=== PATIENT | female | born 1940 | race Caucasian/White ===

== ENCOUNTER 2022-01-23 15:41 | Observation (INO) ==
[2022-01-23 17:18] LABS: Basophils % 0.7 % (0.0-0.8); Eosinophils # 0.1 10*3/uL (0.0-0.87); Eosinophils % 1.5 % (0.00-10.9); Hematocrit 41.9 VOL% (35.7-47.0); Hemoglobin 13.6 GM/DL (12.0-16.0); Immature Granulocytes % 0.7 %; Immature Granulocytes Absolute 0.04 #; Lymphocytes # 1.2 10*3/uL (1.4-4.0); Lymphocytes % 20.8 % (21.3-54.2); Mean Corpuscular HGB Conc 32.5 GM/DL (32-36); Mean Corpuscular Volume 88.6 FL (87-102); Mean Platelet Volume 11.6 FL (9.6-12.0); Monocytes # 0.4 10*3/uL (0.11-0.8); Monocytes % 6.2 % (1.7-12.7); Neutrophils % 70.1 % (38.7-73.9); Platelet Count 172 T/CUMM (130-400); Red Blood Count 4.73 MC/CUMM (3.8-5.5); Red Cell Distribution Width 14.1 % (9.3-17.3); White Blood Count 5.8 T/CUMM (4-12)
[2022-01-23 17:31] LABS: Albumin 4.4 G/DL (3.4-5.0); Bilirubin,Total 0.7 MG/DL (0.20-1.00); Calcium 9.6 MG/DL (8.5-10.1); Osmolality,Calculated 287.7 MOS/KG (273-304); Potassium 4.3 MMOL/L (3.5-5.1); Total Protein 7.2 G/DL (6.4-8.2)
[2022-01-23] MEDS ORDERED: ONDANSETRON 4 MG/2 ML VIAL IV PRN (18:32)
[2022-01-23] MEDS ORDERED: GLUCAGON 1 MG VIAL IM PRN (18:32)
[2022-01-23] MEDS ORDERED: DEXTROSE 10% 250 ML BAG IV PRN (18:42)
[2022-01-23] MEDS ORDERED: hydrALAZINE 25 MG TABLET PO PRN (19:25)
[2022-01-23] MEDS ORDERED: LACTATED RINGERS 1,000 ML IV SCH (20:00)
[2022-01-23] MEDS: LEVOTHYROXINE 25 MCG TABLET PO SCH (20:24)
[2022-01-23] MEDS: HEPARIN 5,000 UNIT/1 ML VIAL SUBCUT SCH (20:24)
[2022-01-23] MEDS: ACETAMINOPHEN 325 MG TABLET PO PRN (21:59)
[2022-01-24 05:08] LABS: Basophils % 0.7 % (0.0-0.8); Eosinophils # 0.1 10*3/uL (0.0-0.87); Eosinophils % 2.4 % (0.00-10.9); Hematocrit 35.1 VOL% (35.7-47.0); Hemoglobin 11.3 GM/DL (12.0-16.0); Immature Granulocytes % 0.2 %; Immature Granulocytes Absolute 0.01 #; Lymphocytes # 1.4 10*3/uL (1.4-4.0); Lymphocytes % 33.2 % (21.3-54.2); Mean Corpuscular HGB Conc 32.2 GM/DL (32-36); Mean Corpuscular Volume 89.8 FL (87-102); Mean Platelet Volume 11.2 FL (9.6-12.0); Monocytes # 0.4 10*3/uL (0.11-0.8); Monocytes % 8.5 % (1.7-12.7); Platelet Count 145 T/CUMM (130-400); Red Blood Count 3.91 MC/CUMM (3.8-5.5); Red Cell Distribution Width 14.2 % (9.3-17.3); White Blood Count 4.2 T/CUMM (4-12)
[2022-01-24 05:58] LABS: Calcium 8.6 MG/DL (8.5-10.1); Osmolality,Calculated 287.3 MOS/KG (273-304); Potassium 4.2 MMOL/L (3.5-5.1); Risk Ratio 3.73; Thyroid Stimulating Hormone 2.4 uIU/ml (0.358-3.74); VLDL Cholesterol 24.8 MG/DL
[2022-01-24] MEDS: HEPARIN 5,000 UNIT/1 ML VIAL SUBCUT SCH ×2 (06:01→20:57)
[2022-01-24] MEDS ORDERED: MAGNESIUM SULF RIDER 2 GM/50 ML PREMIX IV ONE (07:39)
[2022-01-24] MEDS: INSULIN LISPRO 100 UNIT/ML SUBCUT SCH ×2 (08:00→17:10)
[2022-01-24] MEDS: PANTOPRAZOLE 40 MG TABLET PO SCH (08:49)
[2022-01-24] MEDS: ACETAMINOPHEN 325 MG TABLET PO PRN (12:49)
[2022-01-24] MEDS ORDERED: ASPIRIN EC 81 MG TABLET PO SCH (19:00)
[2022-01-24] MEDS: ASCORBIC ACID 500 MG TABLET PO SCH (20:57)
[2022-01-24] MEDS: LEVOTHYROXINE 25 MCG TABLET PO SCH (20:57)
[2022-01-24] MEDS ORDERED: ATORVASTATIN 40 MG TABLET PO SCH (21:00)
[2022-01-25 04:34] LABS: Basophils % 0.7 % (0.0-0.8); Eosinophils # 0.2 10*3/uL (0.0-0.87); Eosinophils % 2.8 % (0.00-10.9); Hematocrit 39.4 VOL% (35.7-47.0); Hemoglobin 12.4 GM/DL (12.0-16.0); Immature Granulocytes % 0.5 %; Immature Granulocytes Absolute 0.03 #; Lymphocytes # 1.7 10*3/uL (1.4-4.0); Lymphocytes % 29.8 % (21.3-54.2); Mean Corpuscular HGB Conc 31.5 GM/DL (32-36); Mean Corpuscular Volume 91.4 FL (87-102); Mean Platelet Volume 10.5 FL (9.6-12.0); Monocytes # 0.5 10*3/uL (0.11-0.8); Monocytes % 7.9 % (1.7-12.7); Neutrophils % 58.3 % (38.7-73.9); Platelet Count 169 T/CUMM (130-400); Red Blood Count 4.31 MC/CUMM (3.8-5.5); Red Cell Distribution Width 14.2 % (9.3-17.3); White Blood Count 5.7 T/CUMM (4-12)
[2022-01-25 05:01] LABS: Calcium 9.6 MG/DL (8.5-10.1); Osmolality,Calculated 281.4 MOS/KG (273-304); Potassium 4.5 MMOL/L (3.5-5.1)
[2022-01-25] MEDS: INSULIN LISPRO 100 UNIT/ML SUBCUT SCH (08:25)
[2022-01-25] MEDS: PANTOPRAZOLE 40 MG TABLET PO SCH (09:53)
[2022-01-25] MEDS: ASCORBIC ACID 500 MG TABLET PO SCH (09:54)
[2022-01-25 12:27] VITALS: BP 148/69
== END 2022-01-25 15:14 | disposition home health service (06) ==
LOC: N.ED 15:41 → N.EDINP 15:41 → N.TELES 21:08
PROVIDERS: ADMIT Internal Medicine; ATTEND Internal Medicine

== ENCOUNTER 2022-05-30 07:31 | Observation (INO) ==
[2022-05-30] MEDS ORDERED: ASPIRIN 325 MG TABLET PO STA (08:07)
[2022-05-30] MEDS ORDERED: NITROGLYCERIN 2% OINT 1 INCH/GM PACK TOP STA (08:07)
[2022-05-30 08:14] LABS: Basophils % 0.7 % (0.0-0.8); Eosinophils # 0.1 10*3/uL (0.0-0.87); Eosinophils % 1.3 % (0.00-10.9); Hematocrit 36.8 VOL% (35.7-47.0); Hemoglobin 11.6 GM/DL (12.0-16.0); Immature Granulocytes % 0.7 %; Immature Granulocytes Absolute 0.04 #; Lymphocytes % 18.8 % (21.3-54.2); Mean Corpuscular HGB Conc 31.5 GM/DL (32-36); Mean Corpuscular Volume 92.5 FL (87-102); Mean Platelet Volume 11.4 FL (9.6-12.0); Monocytes # 0.3 10*3/uL (0.11-0.8); Monocytes % 5.7 % (1.7-12.7); Neutrophils % 72.8 % (38.7-73.9); Platelet Count 153 T/CUMM (130-400); Red Blood Count 3.98 MC/CUMM (3.8-5.5); Red Cell Distribution Width 13.4 % (9.3-17.3); White Blood Count 5.5 T/CUMM (4-12)
[2022-05-30] MEDS ORDERED: ONDANSETRON 4 MG/2 ML VIAL IV STA (08:18)
[2022-05-30] MEDS ORDERED: MORPHINE 10 MG/1 ML VIAL IV STA (08:18)
[2022-05-30 08:26] LABS: Albumin 3.5 G/DL (3.4-5.0); Bilirubin,Total 0.4 MG/DL (0.20-1.00); Calcium 8.8 MG/DL (8.5-10.1); Osmolality,Calculated 289.3 MOS/KG (273-304); Potassium 3.9 MMOL/L (3.5-5.1); Total Protein 5.5 G/DL (6.4-8.2)
[2022-05-30] MEDS ORDERED: MORPHINE 2 MG/1 ML SYRINGE ONE (08:28)
[2022-05-30] MEDS ORDERED: ENOXAPARIN 80 MG/0.8 ML SYRINGE SUBCUT STA (08:51)
[2022-05-30] MEDS ORDERED: ALUMINUM/MAGNES/SIMETH MAX STR 30 ML UDCUP PO PRN (08:57)
[2022-05-30] MEDS ORDERED: POTASSIUM CHLORIDE 20 MEQ TABLET PO PRN (08:57)
[2022-05-30] MEDS ORDERED: ONDANSETRON 4 MG/2 ML VIAL IV PRN (08:57)
[2022-05-30] MEDS ORDERED: hydrALAZINE 20 MG/1 ML VIAL IV PRN (08:57)
[2022-05-30] MEDS ORDERED: MAGNESIUM SULF RIDER 4 GM/100 ML PREMIX IV PRN (08:57)
[2022-05-30] MEDS ORDERED: ACETAMINOPHEN 325 MG TABLET PO PRN (08:57)
[2022-05-30] MEDS ORDERED: guaiFENesin/DM ER 600-30 MG TABLET PO PRN (08:57)
[2022-05-30] MEDS ORDERED: PROMETHAZINE 25 MG TABLET PO PRN (08:57)
[2022-05-30] MEDS ORDERED: DOCUSATE SODIUM 100 MG CAPSULE PO PRN (08:57)
[2022-05-30] MEDS ORDERED: MORPHINE 2 MG/1 ML SYRINGE IV PRN (08:57)
[2022-05-30] MEDS ORDERED: ZALEPLON 5 MG CAPSULE PO PRN (08:57)
[2022-05-30] MEDS ORDERED: diphenhydrAMINE CAP 25 MG CAPSULE PO PRN (08:57)
[2022-05-30] MEDS ORDERED: MAGNESIUM SULF RIDER 2 GM/50 ML PREMIX IV PRN (08:57)
[2022-05-30] MEDS: SODIUM CHLORIDE 0.9% 1,000 ML IV SCH ×3 (09:23→18:27)
[2022-05-30] MEDS ORDERED: NITROGLYCERIN SL 0.4 MG TABLET SL PRN (09:29)
[2022-05-30] MEDS ORDERED: POTASSIUM CHLORIDE RIDER 10 MEQ/100 ML PREMIX IV PRN (09:30)
[2022-05-30] MEDS ORDERED: DIAZEPAM 5 MG TABLET PO ONE (09:30)
[2022-05-30] MEDS ORDERED: diphenhydrAMINE CAP 25 MG CAPSULE PO ONE (09:30)
[2022-05-30] MEDS ORDERED: HEPARIN/NACL 0.9% 2 UNITS/ML 2,000 UNIT/1,000 ML BAG IV ONE (15:36)
[2022-05-30] MEDS ORDERED: fentaNYL 100 MCG/2 ML VIAL ONE (15:53)
[2022-05-30] MEDS ORDERED: MIDAZOLAM 2 MG/2 ML VIAL ONE (15:53)
[2022-05-30] MEDS ORDERED: DIAZEPAM 5 MG TABLET ONE (15:54)
[2022-05-30] MEDS ORDERED: diphenhydrAMINE CAP 25 MG CAPSULE ONE (15:54)
[2022-05-30] MEDS ORDERED: NITROGLYCERIN DRIP 50 MG/250 ML BOTTLE IV ONE (16:05)
[2022-05-30] MEDS ORDERED: VERAPAMIL 5 MG/2 ML VIAL ONE (16:05)
[2022-05-30] MEDS ORDERED: ENOXAPARIN 60 MG/0.6 ML SYRINGE ONE (16:10)
[2022-05-30] MEDS: PANTOPRAZOLE 40 MG TABLET PO SCH (18:26)
[2022-05-30] MEDS ORDERED: LEVOTHYROXINE 25 MCG TABLET PO SCH (21:00)
[2022-05-30] MEDS ORDERED: ASPIRIN EC 81 MG TABLET PO SCH (21:00)
[2022-05-30] MEDS ORDERED: ATORVASTATIN 40 MG TABLET PO SCH (21:00)
[2022-05-31] MEDS: SODIUM CHLORIDE 0.9% 1,000 ML IV SCH ×2 (01:30→09:06)
[2022-05-31 05:27] LABS: Basophils % 0.8 % (0.0-0.8); Eosinophils # 0.1 10*3/uL (0.0-0.87); Eosinophils % 2.1 % (0.00-10.9); Hematocrit 34.5 VOL% (35.7-47.0); Hemoglobin 10.9 GM/DL (12.0-16.0); Immature Granulocytes % 0.6 %; Immature Granulocytes Absolute 0.03 #; Lymphocytes # 1.4 10*3/uL (1.4-4.0); Lymphocytes % 29.7 % (21.3-54.2); Mean Corpuscular HGB Conc 31.6 GM/DL (32-36); Mean Platelet Volume 10.8 FL (9.6-12.0); Monocytes # 0.4 10*3/uL (0.11-0.8); Monocytes % 7.8 % (1.7-12.7); Platelet Count 144 T/CUMM (130-400); Red Blood Count 3.75 MC/CUMM (3.8-5.5); Red Cell Distribution Width 13.5 % (9.3-17.3); White Blood Count 4.8 T/CUMM (4-12)
[2022-05-31 06:01] LABS: Albumin 3.1 G/DL (3.4-5.0); Bilirubin,Total 0.6 MG/DL (0.20-1.00); Calcium 8.6 MG/DL (8.5-10.1); Osmolality,Calculated 284.1 MOS/KG (273-304); Risk Ratio 3.78; Thyroid Stimulating Hormone 2.47 uIU/ml (0.358-3.74); Total Protein 5.5 G/DL (6.4-8.2); VLDL Cholesterol 34.6 MG/DL
[2022-05-31] MEDS: PANTOPRAZOLE 40 MG TABLET PO SCH (08:38)
[2022-05-31] MEDS ORDERED: ISOSORBIDE MONONITRATE 30 MG TABLET PO SCH (09:00)
[2022-05-31] MEDS ORDERED: FUROSEMIDE 20 MG TABLET PO SCH (09:00)
[2022-05-31 09:20] VITALS: BP 139/63
== END 2022-05-31 09:48 | disposition home or self-care (01) ==
LOC: N.EDINP 07:31 → N.ED 07:31 → N.EDINP 12:58 → N.2W 13:08
PROVIDERS: ADMIT Internal Medicine Cardiovascular Disease; ATTEND Internal Medicine Cardiovascular Disease
PROC: CLCCHCL (ICD-10-PCS; 2022-05-30 17:15)